=== PATIENT | female | born 1960 | race Asian ===

== ENCOUNTER 2016-11-22 08:37 | Outpatient (CLI) | payer OTHER | END 2016-11-22 19:11 | disposition home or self-care (01) | LOC: MAMMO 08:37 | DX: Z12.31 Encounter for screening mammogram for malignant neoplasm of breast (principal) | CPT/HCPCS: G0202-TC ==

== ENCOUNTER 2017-09-18 11:28 | Outpatient (CLI) | payer OTHER | END 2017-09-18 19:08 | disposition home or self-care (01) | LOC: RAD 11:28 | DX: I21.A9 Other myocardial infarction type (principal) ==

== ENCOUNTER 2019-06-02 09:41 | Outpatient (CLI) | payer OTHER | END 2019-06-02 23:17 | disposition home or self-care (01) | LOC: MAMMO 09:41 | DX: Z12.31 Encounter for screening mammogram for malignant neoplasm of breast (principal) ==

== ENCOUNTER 2020-06-16 10:09 | Outpatient (CLI) | payer OTHER | END 2020-06-16 22:55 | disposition home or self-care (01) | LOC: MAMMO 10:09 | DX: Z12.31 Encounter for screening mammogram for malignant neoplasm of breast (principal) ==

== ENCOUNTER 2021-07-14 09:17 | Outpatient (CLI) | payer OTHER | END 2021-07-14 18:58 | disposition home or self-care (01) | LOC: MAMMO 09:17 | PROVIDERS: ATTEND Family Medicine | DX: Z12.31 Encounter for screening mammogram for malignant neoplasm of breast (principal) ==

== ENCOUNTER 2022-03-23 15:23 | Outpatient (CLI) | payer OTHER ==
[~2022-03-23] VITALS: Ht 157.5 cm; Wt 80.9 kg
[2022-03-23 16:35] VITALS: BP 153/80; TEMP 100
[2022-03-23 16:50] VITALS: BP 109/66; TEMP 99.4
[2022-03-23 17:05] VITALS: BP 104/74; TEMP 99.1
[2022-03-23 17:35] VITALS: BP 118/68; TEMP 99
--- NOTE | 2022-03-23 18:32 | NUR ---
1542 PT AMBULATED TO ROOM 1128 FOR OP INFUSION. VS OBTAINED 22G PIV TO RAC X 1 ATTEMPT. 1630 BEBTELOVIMAB IVP OVER 30SECONDS, FOLLOWED BY 10ML NS. PT TOLERATED WELL. WILL MONITOR VS PER ORDER. 1735 PT TOLERATED INFUSION WITH NO ADVERSE REACTION SUSPECTED. IV D/C INTACT. SITE CARE PROVIDED . PT AMBULATED OUT OF FACILITY TO POV IN NO DISTRESS
== END 2022-03-23 19:09 | disposition home or self-care (01) ==
LOC: INF 15:23
PROVIDERS: ATTEND Family Medicine
DX: Z23 Encounter for immunization (principal)
CPT/HCPCS: 96374; Q0222

== ENCOUNTER 2022-08-07 14:14 | Outpatient (CLI) | payer OTHER | END 2022-08-07 20:09 | disposition home or self-care (01) | LOC: MAMMO 14:14 | PROVIDERS: ATTEND Nurse Practitioner Primary Care | DX: Z12.31 Encounter for screening mammogram for malignant neoplasm of breast (principal) ==